=== PATIENT | female | born 1990 | race Caucasian/White ===

== ENCOUNTER 2020-01-22 09:47 | Outpatient (CLI) | payer OTHER, SELFPAY ==
[2020-01-22] VITALS (10 sets, daily range): BP systolic 107–129; BP diastolic 69–79; PULSE 82–98; BMI 32.1
[2020-01-22 11:29] LABS: Basophils Absolute Auto 0.1 K/mm3 (0.0-0.1); Basophils Percent Auto 0.5 % (0.2-1.2); Eosinophils Absolute Auto 0.1 K/mm3 (0-0.3); Eosinophils Percent Auto 0.9 % (0-4.4); Hematocrit 31.2 % (37.0-47.0); Hemoglobin 9.8 g/dL (12.0-15.0); Immature Granulocyte Absolute 0.44 K/mm3 (0.00-0.031); Immature Granulocyte Percent A 3.5 % (0-0.5); Lymphocytes Absolute Auto 2.22 K/mm3 (0.9-3.2); Lymphocytes Percent Auto 17.6 % (18.3-44.2); Mean Corpuscular HGB Conc 31.4 g/dl (32-36); Mean Corpuscular Hemoglobin 27.8 pg (26-34); Mean Corpuscular Volume 88.4 fl (80-100); Mean Platelet Volume 11.2 fl (7.4-10.4); Monocytes Absolute Auto 0.8 K/mm3 (0.1-0.6); Monocytes Percent Auto 6.2 % (2.6-8.5); Neutrophils Percent Auto 71.3 % (45.5-73.1); Platelet Count Result 328 k/mm3 (150-375); Red Blood Count 3.53 M/mm3 (4.2-5.4); Red Cell Distribution Width 14.1 % (11.5-14.5); White Blood Count 12.6 K/mm3 (4.5-10.0)
[2020-01-22 11:39] LABS: Add Urine Microscopic? YES; Appearance Urine Cloudy (Clear); Bacteria Urine Trace /hpf; Bilirubin Urine Negative (Negative); Blood Urine 2+ (Negative); Color Urine Yellow (Yellow); Glucose Urine UA Negative (Negative); Ketones Urine Negative (Negative); Leukocyte Esterase Ur 2+ LEU/UL (NEGATIVE); Mucus Urine Rare /lpf; Nitrate Urine Negative (Negative); Protein Urine Negative (Negative); RBC Urine 0-2 /hpf (0-2); Specific Grav Ur 1.014 (1.001-1.035); Squamous Epithelial Cell Urine Many /hpf (Few); Urobilinogen Urine Negative mg/dL (<2.0)
[2020-01-22 11:45] LABS: Creatinine Urine 76.4 mg/dL; Total Protein Urine Random 14 mg/dL
[2020-01-22 11:48] LABS: Alanine Aminotransferase 14 U/L (4-35); Albumin Level 3.6 g/dL (3.5-5.1); Alkaline Phosphatase 207 U/L (38-126); Aspartate Amino Transferase 25 U/L (14-36); Bilirubin,Total 0.3 mg/dL (0.2-1.3); Blood Urea Nitrogen 5 mg/dL (7-17); Calcium 8.5 mg/dL (8.4-10.2); Carbon Dioxide 24 mmol/L (22-30); Chloride 105 mmol/L (98-107); Estimated Glomerular Filt Rate > 60; Glucose 77 mg/dL (65-105); Potassium 3.8 mmol/L (3.4-5.0); Sodium 135 mmol/L (137-145); Uric Acid 4.2 mg/dL (2.5-7.5)
--- NOTE | 2020-01-22 12:36 | OBADM ---
This patient, Hailey Condon, admitted to the OB room Labor/Delivery/Recovery 102 for observation. Patient/family oriented to hospital policies and general routines including ID bracelet, bed and alarms, visiting hours, pain management, procedures, bathroom and other care routines, personal items, smoking policy, room service/diet, and visiting hours. Patient/Family are encouraged to report perceived risks to care and to ask questions if they do not understand what they are told or what they should do.
== END 2020-01-22 13:04 | disposition home or self-care (01) ==
LOC: ANHOBOP 10:13 → ANHLDR 09-04 10:18
PROVIDERS: Visit Provider Obstetrics & Gynecology
DX: O13.9 Gestational [pregnancy-induced] hypertension without significant proteinuria, unspecified trimester (principal)
CPT/HCPCS: 36415; 59025; 80053; 81001; 82570; 84156; 84550; 85025; 87086; 99199

== ENCOUNTER 2020-01-26 04:51 | Inpatient (IN) | payer OTHER, SELFPAY ==
[2020-01-26] VITALS (97 sets, daily range): BP systolic 100–135; BP diastolic 53–85; PULSE 68–107; RESP 16–18; TEMP 36.4–36.9; O2SAT 98–100; BMI 32.6
[2020-01-26 05:40] LABS: Basophils Absolute Auto 0.1 K/mm3 (0.0-0.1); Basophils Percent Auto 0.5 % (0.2-1.2); Eosinophils Absolute Auto 0.1 K/mm3 (0-0.3); Eosinophils Percent Auto 0.7 % (0-4.4); Hematocrit 30.3 % (37.0-47.0); Hemoglobin 9.4 g/dL (12.0-15.0); Immature Granulocyte Absolute 0.31 K/mm3 (0.00-0.031); Immature Granulocyte Percent A 2.5 % (0-0.5); Lymphocytes Absolute Auto 2.81 K/mm3 (0.9-3.2); Lymphocytes Percent Auto 22.9 % (18.3-44.2); Mean Corpuscular Hemoglobin 27.4 pg (26-34); Mean Corpuscular Volume 88.3 fl (80-100); Mean Platelet Volume 11.4 fl (7.4-10.4); Monocytes Absolute Auto 0.8 K/mm3 (0.1-0.6); Monocytes Percent Auto 6.4 % (2.6-8.5); Neutrophils Absolute Auto 8.2 K/mm3 (1.3-6.7); Platelet Count Result 321 k/mm3 (150-375); Red Blood Count 3.43 M/mm3 (4.2-5.4); Red Cell Distribution Width 14.4 % (11.5-14.5); White Blood Count 12.3 K/mm3 (4.5-10.0)
[2020-01-26] MEDS: AMPICILLIN 2 GM/NS 100 ML 2 GM/100 ML BAG IVPB (05:43)
[2020-01-26] MEDS: OXYTOCIN 30 UNITS/NS 500 ML 30 UNITS/500 ML BAG IV CONT (05:43)
[2020-01-26] MEDS: LACTATED RINGERS 1,000 ML 125 ML IV CONT ×2 (05:44→07:02)
[2020-01-26 06:29] LABS: HIV 1/2 Ab P24 Ag Result Negative (Negative)
[2020-01-26] MEDS: AMPICILLIN 1 GM/NS 50 ML 1 GM/50 ML BAG IVPB (09:30)
[2020-01-26 10:31] LABS: Rapid Plasma Reagin Non-Reactive (NonReactive)
--- NOTE | 2020-01-26 10:55 | WPDOBADMIT ---
Obstetrics - Admit Note Admission Note: SROm spontaneously clear fluid complete and +2 station. record reviewed. No pertinent additions to the history and/or any subsequent changes in the physical findings that are not consistent with the expected course of the were found. Additions to the history and/or subsequent changes in the physical findings follow. None.
--- NOTE | 2020-01-26 10:56 | PM.OBPRVD ---
OB - Delivery Note Procedure Delivery date: 01/26/20 events: Labor Induction Intrapartal events: None Induction method: per pitocin protocol Delivery monitor: external FHT and external uterine Route of delivery: Laceration description: Perineal - 2nd Degree Delivery repair: vicryl Specimen: No Estimated blood loss (mL): 200 Anesthesia type: Epidural Disposition: floor [place] Baby Date of : 01/26/20 Time of : 10:36 Weeks of gestation at delivery: 39 Infant gender: Female Weight (pounds): 8 Weight (ounces): 6 presentation: vertex Placenta delivery description: Spontaneous cord vessel description: 3 Vessels score one minute: 8 score five minutes: 9
--- NOTE | 2020-01-26 10:58 | PM.OBDSVD ---
OB - DS: Summary OB Procedures : None OB Procedures Intrapartum: Spontaneous Vag Delivery OB Procedures: : None Time Spent with Patient Time attestation: Total time spent providing and/or coordinating discharge services: DS: Data Data Completed and Pending Labs on day of discharge: Labs from last 24 hours 01/26/20 01/26/20 01/26/20 05:27 05:27 05:27 WBC 12.3 H RBC 3.43 L Hgb 9.4 L Hct 30.3 L MCV 88.3 MCH 27.4 MCHC 31.0 L RDW 14.4 Plt Count 321 MPV 11.4 H Immature Gran % (Auto) 2.5 H Neut % (Auto) 67.0 Lymph % (Auto) 22.9 [place] % (Auto) 6.4 Eos % (Auto) 0.7 Baso % (Auto) 0.5 Lymph # (Auto) 2.81 [place] # (Auto) 0.8 H Eos # (Auto) 0.1 Baso # (Auto) 0.1 Abs Immat Gran (auto) 0.31 H Absolute Neuts (auto) 8.2 H Absolute Nucleated RBC 0.0 Nucleated RBC % 0.0 RPR Non-reactive HIV 1&2 Ab/P24 Ag 4thGn Blood Type B Positive Antibody Screen Negative 01/26/20 05:27 WBC RBC Hgb Hct MCV MCH MCHC RDW Plt Count MPV Immature Gran % (Auto) Neut % (Auto) Lymph % (Auto) [place] % (Auto) Eos % (Auto) Baso % (Auto) Lymph # (Auto) [place] # (Auto) Eos # (Auto) Baso # (Auto) Abs Immat Gran (auto) Absolute Neuts (auto) Absolute Nucleated RBC Nucleated RBC % RPR HIV 1&2 Ab/P24 Ag 4thGn Negative Blood Type Antibody Screen Discharge Plan Discharge Attending physician on discharge: Chano Bridges Discharging Clinician: Chano Bridges Patient Disposition: Home, Self-Care Activity: may shower Diet: regular Discharge Instructions: Education: Mom and Baby Guide Given to: Mother Follow-Up: Call your delivering provider's office for an appointment to be seen in: 4 Weeks Mom [facility]. Appointment Date/Time: January 29, 2020 at 10:00 am What to expect at your follow-up visit: Blood Pressure Check Call [phone] if you are unable to keep your appointment time. BREAST CARE: 1. Wear a snug supportive bra. 2. For engorgement discomfort: Breast Feeding: A. Apply warm moist washcloths B. Express milk as needed to relieve engorgement C. Wear loose clothing Bottle Feeding: A. May apply ice packs 3. For sore nipples: A. Identify correct latch-on B. Apply warm moist washcloths before and after nursing C. Air dry nipples after nursing D. May apply Lansinoh cream to nipples PERINEAL CARE: 1. Until bleeding stops, use your jane bottle after urinating 2. Change your pad frequently throughout the day 3. You may take sitz baths several times a day (fill your bathtub with warm water and soak for 20 minutes.) Do NOT bathe in the water 4. No tub baths until seen by your physician - You may shower ACTIVITY: 1. Rest as much as possible. 2. Do not exercise or lift anything heavier than your baby (such as laundry or other children.) 3. Avoid stairs or driving as much as possible. 4. Do not put anything into the vagina. No douching, tampons, or sexual activity until seen by physician. NOTIFY PHYSICIAN IF YOU HAVE ANY QUESTIONS OR IF ANY OF THE FOLLOWING SYMPTOMS OCCUR: 1. If your perineum becomes red, swollen, or more painful than what you have experienced in the hospital. 2. If your vaginal bleeding becomes foul smelling. 3. If your vaginal bleeding becomes more heavy than a period or if your bleeding changes from pink to bright red. However, you may pass an occasional walnut-sized clot once or twice for the first week . 4. If you experience a sharp, shooting pain in you calves. 5. If you discover a hard, reddened area on your breast or if you experience flu-like symptoms. 6. Call for temp 100.4 or greater DIET: 1. Eat regular, well-balanced meals. 2. Drink plenty of fluids daily. If breas
[2020-01-26] MEDS: OXYTOCIN 30 UNITS/NS 500 ML 30 UNITS/500 ML BAG 125 UNITS IV CONT (11:16)
--- NOTE | 2020-01-26 13:10 | LDADM ---
This patient, Hailey Condon, was admitted to Labor/Delivery/Recovery 108 on 01/26/20 at 04:51. Plans for labor, pain management and were discussed with patient. Patient/family oriented to hospital policies and general routines including ID bracelet, bed and alarms, visiting hours, pain management, procedures, bathroom and other care routines, personal items, smoking policy, room service/diet and guest tray routines, infant security routines, and visiting hours. Patient/Family are encouraged to report perceived risks to care and to ask questions if they do not understand what they are told or what they should do. See [facility] for further documentation. Per Jerilyn Aaron RN
[2020-01-26] MEDS: ACETAMINOPHEN 325 MG TABLET 650 MG PO (13:14)
[2020-01-26] MEDS: WITCH HAZEL 40 PADS 1 PAD TOPICAL (13:58)
[2020-01-26] MEDS: DIBUCAINE 1% OINTMENT 30 GM TUBE 1 APPLIC TOPICAL (13:58)
[2020-01-26] MEDS: BENZOCAINE 20% AER SPR (*SP) 56 GM CAN 1 SPRAY TOPICAL (13:58)
--- NOTE | 2020-01-26 14:12 | PC.NURSE ---
Patient transferred to post room #292 per wheelchair. Support person present. Oriented to unit, room, information board, rooming in, admission packet and security measures. Patient verbalizes understanding.
[2020-01-26] MEDS: IBUPROFEN 600 MG TABLET PO ×2 (15:09→21:03)
[2020-01-26] MEDS: DOCUSATE SODIUM 100 MG CAPSULE PO (15:09)
[2020-01-26] MEDS: LANOLIN (LANSINOH) 7.5 GM CREAM 1 APPLIC TOPICAL (15:10)
--- NOTE | 2020-01-26 16:10 | PC.NURSE ---
Consulted with patient, mother reports pain with feeding. Both nipples are clear no reddened areas. Nipple care reviewed. Reviewed feeding cues, frequencies, duration of feedings, feeding elimination flow sheet, and signs of adequate intake. Demonstrated stimulation techniques to wake for feeding. Assisted with to breast. Reviewed positioning/alignment in cross cradle, holding breast in U hold and guided asymmetrical latch on. Discussed rational for each. Infant was able to latch correctly. Mother quickly reports she can feel is latched more deeply than previous feedings. Infant nursed eagerly, with steady draws and frequent swallowing noted. Reviewed signs of a correct latch, effective nursing and suck swallow ratio. Infant was able to maintain latch without minimal tenderness to mother. Suggested mother stimulate infant to keep awake and nursing effectively for increased intake and assist with maintaining deep latch. Demonstrated how to adjust latch more deeply while feeding. Instructed mother to call out for RN assistance if she is unable to latch for feeding or she has discomfort with nursing. Instructed feeding should be initiated three hours from start of last feeding or if feeding cues are noted before. Mother voiced understanding of information shared.
[2020-01-27] MEDS: IBUPROFEN 600 MG TABLET PO ×3 (03:50→16:31)
[2020-01-27] MEDS: ACETAMINOPHEN 325 MG TABLET 650 MG PO (03:50)
[2020-01-27 05:38] LABS: Hematocrit 27.3 % (37.0-47.0); Hemoglobin 8.5 g/dL (12.0-15.0)
[2020-01-27 07:15] VITALS: BP 113/73; PULSE 83; RESP 18; TEMP 36.7; O2SAT 98
[2020-01-27] MEDS: BENZOCAINE 20% AER SPR (*SP) 56 GM CAN 1 SPRAY TOPICAL (07:49)
[2020-01-27] MEDS: LANOLIN (LANSINOH) 7.5 GM CREAM 1 APPLIC TOPICAL (07:50)
[2020-01-27] MEDS: DOCUSATE SODIUM 100 MG CAPSULE PO ×2 (07:50→16:30)
[2020-01-27] MEDS: POLYSACCHARIDE IRON COMPLEX 150 MG CAPSULE PO ×2 (07:50→16:30)
[2020-01-27] MEDS: WITCH HAZEL 40 PADS 1 PAD TOPICAL (07:50)
[2020-01-27] MEDS: MULTIVIT/MIN/PREN/FOL AC/IRON TABLET 1 TAB PO (07:51)
--- NOTE | 2020-01-27 09:13 | P.PNOB_ITS ---
OB - PN: Subj Subjective Date/time seen: 01/27/20 09:13 Patient comments: no complaints, pain well controlled, tolerating diet and flatus present [place] baby status: doing well and nursing well feeding status: exclusively breast feeding OB - PN: Obj Data Labs CBC & Chem 7: 01/27/20 04:57 Labs: Laboratory Results - last 24 hr 01/26/20 01/27/20 05:27 04:57 Hgb 8.5 L Hct 27.3 L RPR Non-reactive OB - PN A/P Plan day: 1 Plan: routine care Time Spent With Patient Time: Total time spent is greater than 50% in coordination of care (as document ed) at patient's floor/unit and/or counseling patient: Time with patient: less than 15 minutes Review of Systems Constitutional: Constitutional: Reports no additional constitutional complaints Cardiovascular: Cardiovascular: Reports no additional cardiovascular complai nts Respiratory: Respiratory: Reports no additional respiratory complaints Gastrointestinal: Gastrointestinal: Reports no additional gastrointestinal complaints Genitourinary: Genitourinary: Reports no additional female genitourinary complaints Exam Const: General: comfortable, no acute distress, alert and awake Resp: Effort & Inspection: normal respiratory effort Auscultation: clear to auscultation bilaterally Cardio: Rate: regular rate GI: Auscultation: normal bowel sounds Other: Fundus firm below umbilicus
--- NOTE | 2020-01-27 11:41 | WPDANLDPN2 ---
Anes-Prog Note L&D Date/Time: 01/27/20 11:41 Comfortable throughout: labor and delivery Neuraxial method: epidural Epidural/Spinal procedure site: clean & non-tender Neuro status: Neuro function grossly intact. Cardiovascular status: normal Respiratory status: normal Airway patency: baseline Mental status: baseline Post-Op hydration status: normal Vital Signs: Last Vital Signs Temp 98.0 F 01/27/20 07:15 Pulse 83 01/27/20 07:15 Resp 18 01/27/20 07:15 BP 113/73 01/27/20 07:15 Pulse Ox 98 01/27/20 07:15 Post-procedural complaints: none Patient feedback: Patient satisfied with anesthetic care.
--- NOTE | 2020-01-27 12:30 | PC.NURSE ---
Consulted with patient, mother reports pain with feeding. Both nipples are reddened and excoriated from incorrect latch. Nipple care reviewed. Gel pads provided. Mother states she feels infant is latching correctly, experiencing more pain at latch that will resolve after a few minutes. Reviewed feeding cues, frequencies, duration of feedings, feeding elimination flow sheet, and signs of adequate intake. Demonstrated stimulation techniques to wake for feeding. Assisted with to breast. Reviewed positioning/alignment in cross cradle, holding breast in U hold and guided asymmetrical latch on. Infant was able to latch correctly. Mother quickly reports she can feel infant is latched more deeply than previous feedings. nursed eagerly, with steady draws and frequent swallowing noted. Reviewed signs of a correct latch, effective nursing and suck swallow ratio. Infant was able to maintain latch without discomfort to mother. Suggested mother stimulate to keep awake and nursing effectively for increased intake and assist with maintaining deep latch. Demonstrated how to adjust latch more deeply while feeding. Mother believes will latch shallow and slowly draw nipple in, not latching deeply from first suck. Instructed mother to call out for RN assistance if she is unable to latch infant for feeding or she has discomfort with nursing. Instructed feeding should be initiated three hours from start of last feeding or if feeding cues are noted before. Mother voiced understanding of information shared
[2020-01-27] MEDS: DIBUCAINE 1% OINTMENT 30 GM TUBE 1 APPLIC TOPICAL (16:30)
[2020-01-27 18:47] VITALS: BP 115/61; PULSE 84; RESP 16; TEMP 36.9
[2020-01-28] MEDS: IBUPROFEN 600 MG TABLET PO ×2 (00:40→10:55)
[2020-01-28 07:39] VITALS: BP 97/63; PULSE 78; RESP 18; TEMP 36.7; O2SAT 100
--- NOTE | 2020-01-28 08:00 | PC.NURSE ---
PT introductions made and plan of care discussed per post , pain management, breast feeding, daily care activities and pending discharge to home. PT verbalized understanding of such care.
[2020-01-28] MEDS: MULTIVIT/MIN/PREN/FOL AC/IRON TABLET 1 TAB PO (10:54)
[2020-01-28] MEDS: DOCUSATE SODIUM 100 MG CAPSULE PO (10:54)
[2020-01-28] MEDS: POLYSACCHARIDE IRON COMPLEX 150 MG CAPSULE PO (10:55)
[2020-01-28 11:00] VITALS: PULSE 78; RESP 18; O2SAT 100
--- NOTE | 2020-01-28 11:15 | PC.NURSE ---
Mother is able to independently latch infant with appropriate positioning/alignment. She denies any nipple discomfort, is feeding as required and waking to feed if needed. has had 8 effective feedings in the past 24 hours, and is currently meeting outcomes for weight, output, jaundice and feeding frequencies. Mother states she feels confident to continue effective at home. Reviewed transition to breast milk, signs of adequate intake, and engorgement/relief. Instructed to call ICP if intake/output less than required. Reviewed regular medications mother is taking. Information provided per Elaine. Reviewed community resources on the [facility] website and in the Mom/Baby guide. Information on outpatient services provided. Mother has no further questions at this time.
--- NOTE | 2020-01-28 11:45 | PC.NURSE ---
PT received discharge instructions per protocol and verbalized understanding of such care.
--- NOTE | 2020-01-28 12:06 | PC.NURSE ---
PT discharged to home ambulatory accompanied by spouse and to waiting car. follow up appts confirmed.
[2020-01-29 10:20] VITALS: BP 105/81; PULSE 85; RESP 18; TEMP 36.8
== END 2020-01-28 12:06 | disposition home or self-care (01) | DRG 807 ==
LOC: ANHLDR 05:27 → ANHOB2 14:16
PROVIDERS: Admitting Provider Obstetrics & Gynecology; Visit Provider Obstetrics & Gynecology
DX: O99.824 Streptococcus B carrier state complicating childbirth (principal); Z37.0 Single live birth; Z3A.39 39 weeks gestation of pregnancy; Z23 Encounter for immunization; O76 Abnormality in fetal heart rate and rhythm complicating labor and delivery; O70.1 Second degree perineal laceration during delivery
CPT/HCPCS: 36415; 85014; 85018; 85025; 86592; 86703; 86850; 86900; 86901; A9270; G0432; J0290; J2590; J2795; J7120

== ENCOUNTER 2024-05-29 12:45 | Outpatient (CLI) | payer OTHER, SELFPAY ==
[2024-05-29 13:06] LABS: Alanine Aminotransferase 111 U/L (6-35); Albumin Level 4.8 g/dL (3.5-5.1); Alkaline Phosphatase 67 U/L (38-126); Aspartate Amino Transferase 70 U/L (14-36); Bilirubin,Total 0.5 mg/dL (0.2-1.3)
== END 2024-05-29 12:46 | disposition home or self-care (01) ==
LOC: ANHLAB 12:46
PROVIDERS: PCP Family Medicine; Visit Provider Nurse Practitioner Family
DX: B35.2 Tinea manuum (principal)
CPT/HCPCS: 36415; 80076

== ENCOUNTER 2024-07-02 14:24 | Outpatient (CLI) | payer OTHER, SELFPAY ==
[2024-07-02 14:44] LABS: Hematocrit 38.4 % (37.0-47.0); Hemoglobin 13.2 g/dL (12.0-15.0); Mean Corpuscular HGB Conc 34.4 g/dl (32-36); Mean Corpuscular Hemoglobin 32.1 pg (26-34); Mean Corpuscular Volume 93.4 fl (80-100); Mean Platelet Volume 10.4 fl (7.4-10.4); Platelet Count Result 313 k/mm3 (150-375); Red Blood Count 4.11 M/mm3 (4.2-5.4); Red Cell Distribution Width 11.5 % (11.5-14.5); White Blood Count 7.3 K/mm3 (4.5-10.0)
[2024-07-02 15:09] LABS: Alanine Aminotransferase 23 U/L (6-35); Albumin Level 4.7 g/dL (3.5-5.1); Alkaline Phosphatase 56 U/L (38-126); Aspartate Amino Transferase 33 U/L (14-36); Bilirubin,Total 0.4 mg/dL (0.2-1.3); Cholesterol 186 mg/dL (0-200); HDL Direct 88 mg/dL; Triglycerides 75 mg/dL (<150)
[2024-07-02 15:20] LABS: LDL Cholesterol Direct 62 mg/dL
[2024-07-04 05:03] LABS: GGT 28 U/L (3-50)
== END 2024-07-02 14:25 | disposition home or self-care (01) ==
LOC: ANHLAB 14:26
PROVIDERS: PCP Family Medicine; Visit Provider Nurse Practitioner Family
DX: R74.8 Abnormal levels of other serum enzymes (principal)
CPT/HCPCS: 36415; 80061; 80076; 82977; 85027

== ENCOUNTER 2025-01-15 14:45 | Outpatient (CLI) | payer OTHER, SELFPAY ==
[2025-01-15 15:18] LABS: Hematocrit 35.2 % (37.0-47.0); Hemoglobin 11.8 g/dL (12.0-15.0); Mean Corpuscular HGB Conc 33.5 g/dl (32-36); Mean Corpuscular Hemoglobin 31.6 pg (26-34); Mean Corpuscular Volume 94.1 fl (80-100); Mean Platelet Volume 10.5 fl (7.4-10.4); Platelet Count Result 321 k/mm3 (150-375); Red Blood Count 3.74 M/mm3 (4.2-5.4); White Blood Count 7.1 K/mm3 (4.5-10.0)
[2025-01-15 15:50] LABS: Alanine Aminotransferase 50 U/L (6-35); Albumin Level 4.5 g/dL (3.5-5.1); Alkaline Phosphatase 69 U/L (38-126); Anion Gap 10 mmol/L (4-12); Aspartate Amino Transferase 35 U/L (14-36); Bilirubin,Total 0.3 mg/dL (0.2-1.3); Blood Urea Nitrogen 16 mg/dL (7-17); Calcium 8.9 mg/dL (8.4-10.2); Carbon Dioxide 29 mmol/L (22-30); Chloride 100 mmol/L (98-107); Estimated Glomerular Filt Rate > 60; Glucose 93 mg/dL (65-110); Magnesium 1.8 mg/dL (1.6-2.3); Potassium 3.5 mmol/L (3.4-5.0); Sodium 139 mmol/L (137-145)
[2025-01-15 15:59] LABS: Iron 92 ug/dL (37-170)
[2025-01-15 16:10] LABS: Percent Iron Saturation 30 % (20-50)
[2025-01-15 16:21] LABS: Thyroid Stimulating Hormone 0.694 uIU/mL (0.465-4.680)
[2025-01-15 17:09] LABS: Vitamin D 25 Hydroxy 42.9 ng/mL
== END 2025-01-15 14:46 | disposition home or self-care (01) ==
LOC: ANHLAB 14:46
PROVIDERS: PCP Family Medicine; Visit Provider Nurse Practitioner Family
DX: R25.3 Fasciculation (principal); D64.9 Anemia, unspecified; R74.8 Abnormal levels of other serum enzymes
CPT/HCPCS: 36415; 80053; 82306; 82607; 83540; 83550; 83735; 84443; 85027